=== PATIENT | male | born 1995 | race Caucasian/White ===

== ENCOUNTER 2019-12-26 17:02 | Emergency (ER) | payer OTHER, SELFPAY ==
[2019-12-26 17:10] VITALS: BP 134/76; PULSE 55; RESP 18; TEMP 36.7; O2SAT 100
--- NOTE | 2019-12-26 17:27 | ED.GENADULT ---
HPI - General Adult General Chief complaint: Skin/Abscess/Foreign Body Stated complaint: Rash on face/arm/fingers Time Seen by Provider: 12/26/19 17:27 Source: patient Mode of arrival: ambulatory Limitations: no limitations History of Present Illness HPI narrative: 24-year-old male patient presents to the [facility] with complaints of a rash to the left elbow and left arm area as well as bilateral hands and to right eye for the past 4 days. Patient states he was burning some brush and thinks he came into some poison oak. Patient states he has had this before. Denies any vision changes to the eye but states that it is itchy. Denies any discharge from the eye. Patient denies any chest pain, shortness of breath, denies any swelling to the lips tongue or face. Related Data Allergies Allergy/AdvReac Type Severity Reaction Status Date / Time No Known Allergies Allergy Verified 12/26/19 17:27 Review of Systems Review of Systems: Narrative: CONSTITUTIONAL: Denies fever, chills, or sweats. EYES: Denies visual changes, redness, or discharge. ENT: Denies rhinorrhea, congestion, sore throat, or otalgia. CARDIOVASCULAR: Denies chest pain, palpitations, or edema. RESPIRATORY: Denies cough or dyspnea. GASTROINTESTINAL: Denies abdominal pain, nausea, vomiting, or diarrhea. GENITOURINARY: Denies dysuria or hematuria. SKIN: Positive rash to left elbow, bilateral hands, and right eye x4 days MUSCULOSKELETAL: Denies back pain, joint pain, or myalgia. NEUROLOGIC: Denies headache, numbness, or weakness. PSYCHIATRIC: Denies anxiety or depression. PMFSH Past Medical History Medical History Anxiety GERD (gastroesophageal reflux disease) Surgical History Surgical History History of orthopedic surgery Right shoulder Social History Social History Gender identity (if verbalized by the patient): Male Comments At the time of my signature I agree with nursing past medical history, surgical, social, and family history. There is no relevant family history pertinent to the presenting complaint. Exam Narrative: Exam Narrative: GENERAL: Well-appearing, well-nourished, and in no acute distress. HEAD: Normocephalic, atraumatic. EYES: PERRLA and EOM intact without limitation or complaint of pain, periorbital soft tissue swelling with erythema noted to the right eye,no warmth or tenderness noted, no obvious deformity. No crusting or swelling.no tearing or draining.No photophobia. No nystagmus No FB or lesion on lid eversion. Corneas grossly clear, no obvious FB or hyphens/hypopyon. No injection to sclera. Lids and lashes clear. ENT: Nares clear, no rhinorrhea or epistaxis. Mucous membranes moist. NECK: Supple. No lymphadenopathy CHEST: Clear to auscultation. No respiratory distress. HEART: Regular rate and rhythm. No murmur heard. Normal peripheral pulses. ABDOMEN: Soft, nontender, nondistended, normal active bowel sounds. EXTREMITIES: Normal range of motion. No edema. SKIN: Patient does have a pustular rash with a linear pattern noted over the left elbow that extends up to the left forearm. There is a similar rash noted in between the webs of the fingers on bilateral hands. NEURO: No focal deficits. Alert and oriented x3. Course Vital Signs Vital signs: Vital Signs Temperature 36.7 C 12/26/19 17:10 Pulse Rate 55 L 12/26/19 17:10 Respiratory Rate 18 12/26/19 17:10 Blood Pressure 134/76 12/26/19 17:10 Pulse Oximetry 100 12/26/19 17:10 Temperature 36.7 C 12/26/19 17:10 Pulse Rate 55 L 12/26/19 17:10 Respiratory Rate 18 12/26/19 17:10 Blood Pressure 134/76 12/26/19 17:10 Pulse Oximetry 100 12/26/19 17:10 Vital signs reviewed. The patient has been informed that they may have pre-hypertension or Hypertension based on a BP reading in the department. I re
== END 2019-12-26 17:35 | disposition home or self-care (01) ==
PROVIDERS: Emergency Provider Nurse Practitioner Family
DX: L23.7 Allergic contact dermatitis due to plants, except food (principal)
CPT/HCPCS: 99213; G0463